=== PATIENT | male | born 1985 | race Asian ===

== ENCOUNTER 2024-03-16 06:58 | Day surgery (SDC) | payer OTHER ==
[~2024-03-16] VITALS: Ht 160 cm; Wt 54.4 kg
[~2024-03-16 06:58] MED LIST: FERROUS GLUC324 MG PO; LISINOPRIL10 MG PO; METFORMIN500 M2 PO; PROTONIX40 M2 PO
[2024-03-16] MEDS ORDERED: SODIUM CHLORIDE 0.9% 1,000 ML IV ONE (07:10)
[2024-03-16] MEDS ORDERED: FAMOTIDINE 10MG/ML 2ML SDV IV ONE (07:10)
[2024-03-16 08:27] VITALS: BP 157/108
[2024-03-16] MEDS ORDERED: PROPOFOL 200 MG/20 ML VIAL IV ONE (12:23)
[2024-03-16] MEDS ORDERED: LIDOCAINE HCL 2% 2ML SDV IV ONE (12:23)
== END 2024-03-16 08:53 | disposition home or self-care (01) ==
LOC: ENDO 06:58 → ORM 10:30
PROVIDERS: ATTEND Internal Medicine Gastroenterology
DX: K29.50 Unspecified chronic gastritis without bleeding (principal); D50.9 Iron deficiency anemia, unspecified; K64.8 Other hemorrhoids; Z79.899 Other long term (current) drug therapy; Z86.19 Personal history of other infectious and parasitic diseases